=== PATIENT | female | born 1975 | race Caucasian/White ===

== ENCOUNTER 2018-07-04 23:25 | Emergency (ER) | payer SELFPAY ==
[~2018-07-04] VITALS: Ht 154.9 cm; Wt 59.0 kg
[2018-07-04 23:41] VITALS: BP_SYST 146
--- NOTE | 2018-07-04 23:44 | NUR ---
Patient to ER bed 05 to gown for evaluation. Side rails up. Report given to YU Lowry
[2018-07-04] MEDS ORDERED: NACL 0.9% 1,000 ML IV ONE (23:49)
--- NOTE | 2018-07-04 23:50 | NUR ---
Patient came in for nausea, vomitting, and diarrhea. Patient has 10/10 epigastric pain. Patient said that she took Duolax which she explains why she has diarrhea. Patient said she had a csection in 2006. History of of Lupus. No other complaints/injuries noted. Will cont. to monitor.
[2018-07-05] MEDS ORDERED: KETOROLAC TROMETHAMINE 30 MG VIAL IVP ONE
[2018-07-05] MEDS ORDERED: ONDANSETRON HCL 4 MG/2 ML VIAL IVP ONE
--- NOTE | 2018-07-05 00:05 | NUR ---
# 20 gauge angiocath placed to RAC. Use of asceptic technique. Opsite placed over site. Blood return noted. Blood for lab drawn from site. Flushed with 10 cc of normal saline. No evidence of infiltration noted. Patient tolerated well.
--- NOTE | 2018-07-05 00:28 | NUR ---
Patient started on fluids, Toradol IVP, and zofran IVP. Patient tolerated well. Will cont. to monitor.
[2018-07-05 00:37] LABS: CALCIUM 9.8 mg/dL (8.4-11.0); CREATININE 0.92 mg/dL (0.55-1.30); POTASSIUM 3.3 mmol/L (3.5-5.1)
[2018-07-05 00:40] LABS: ALBUMIN 4.5 g/dL (3.4-4.8); TOTAL BILIRUBIN 0.3 mg/dL (0.0-1.0)
--- NOTE | 2018-07-05 00:40 | NUR ---
ER Dr. Zavala at bedside examining patient.
[2018-07-05 00:49] LABS: BASOPHILS % (AUTO) 0.3 % (0.0-2.0); EOSINOPHILS % (AUTO) 0.5 % (0.0-4.0); HEMATOCRIT 45.3 % (36-48); HEMOGLOBIN 14.9 g/dL (12.0-16.0); LYMPHOCYTES # (AUTO) 1.4 K/uL (1.0-5.5); LYMPHOCYTES % (AUTO) 18.6 % (20.5-51.5); MEAN CORPUSCULAR HEMOGLOBIN 30 pg (27-31); MEAN CORPUSCULAR HGB CONC 33 % (32-36); MEAN CORPUSCULAR VOLUME 91 fL (79.0-98.0); MONOCYTES # (AUTO) 0.4 K/uL (0.0-1.0); NEUTROPHILS # (AUTO) 5.5 K/uL (1.8-7.7); NEUTROPHILS % (AUTO) 74.6 % (40.0-70.0); PLATELET COUNT (AUTO) 203 K/uL (130-430); RED BLOOD CELL COUNT(AUTO) 4.97 MIL/uL (4.2-6.2); RED CELL DISTRIBUTION WIDTH 12.8 % (9.0-15.0); WHITE BLOOD COUNT (AUTO) 7.3 K/uL (4.8-10.8)
--- NOTE | 2018-07-05 00:50 | NUR ---
Note undone in EDM - 07/05/18 at 0107 by [email or web address] # 20 gauge angiocath placed to RAC. Use of asceptic technique. Opsite placed over site. Blood return noted. Blood for lab drawn from site. Flushed with 10 cc of normal saline. No evidence of infiltration noted. Patient tolerated well.
[2018-07-05 01:03] LABS: BILIRUBIN,URINE NEGATIVE (NEGATIVE); BLOOD, URINE NEGATIVE (NEGATIVE); CLARITY/URINE CLEAR (CLEAR); COLOR,URINE YELLOW (YELLOW); GLUCOSE,URINE NEGATIVE (NEGATIVE); KETONES,URINE NEGATIVE (NEGATIVE); LEUKOCYTE ESTERASE ,URINE NEGATIVE (NEGATIVE); NITRITE, URINE NEGATIVE (NEGATIVE); PROTEIN URINE NEGATIVE (NEGATIVE); UROBILINOGEN,URINE 0.2 (0.2-1.0)
--- NOTE | 2018-07-05 01:05 | NUR ---
Patient is going to ultrasound via wheelchair. Tolerating well.
[2018-07-05 02:12] VITALS: BP_SYST 146
--- NOTE | 2018-07-05 02:12 | NUR ---
Patient given written and verbal discharge instructions and verbalizes understanding. ER MD Dr. Painter discussed with patient the results and treatment provided. Patient in stable condition. ID arm band removed. IV catheter removed intact and dressing applied, no active bleeding. Rx of Fosters and zofran given. Patient educated on pain management and to follow up with PMD within 2-3 days. Pain Scale 0/10. Opportunity for questions provided and answered. Medication side effect fact sheet provided.
== END 2018-07-05 02:12 | disposition home or self-care (01) ==
LOC: SED 23:25
DX: K80.70 Calculus of gallbladder and bile duct without cholecystitis without obstruction (principal); R03.0 Elevated blood-pressure reading, without diagnosis of hypertension
CPT/HCPCS: 36415; 76700; 80053; 81003; 83690; 85025; 96361; 96374; 96375; 99285; J1885; J2405; J7030

== ENCOUNTER 2022-08-04 02:07 | Emergency (ER) | payer OTHER ==
[~2022-08-04] VITALS: Ht 154.9 cm; Wt 56.2 kg
[2022-08-04 02:10] VITALS: BP_SYST 149
[2022-08-04] MEDS ORDERED: NACL 0.9% 1,000 ML IV ONE (02:30)
[2022-08-04] MEDS ORDERED: MORPHINE 4 MG INJ. 4 MG/ML VIAL IVP ONE (02:30)
[2022-08-04] MEDS ORDERED: ONDANSETRON HCL 4 MG/2 ML VIAL IVP ONE ×2 (02:30→02:45)
[2022-08-04 02:34] LABS: BILIRUBIN,URINE NEGATIVE (NEGATIVE); BLOOD, URINE NEGATIVE (NEGATIVE); CLARITY/URINE CLEAR (CLEAR); COLOR,URINE YELLOW (YELLOW); GLUCOSE,URINE NEGATIVE (NEGATIVE); KETONES,URINE NEGATIVE (NEGATIVE); LEUKOCYTE ESTERASE ,URINE TRACE (NEGATIVE); NITRITE, URINE NEGATIVE (NEGATIVE); PH,URINE 7.5 (5.0-8.0); PROTEIN URINE NEGATIVE (NEGATIVE); UROBILINOGEN,URINE 0.2 (0.2-1.0)
[2022-08-04] MEDS ORDERED: MORPHINE 4 MG INJ. 4 MG/ML VIAL IM ONE ×2 (02:45)
[2022-08-04 02:47] LABS: BASOPHILS # (AUTO) 0.1 K/uL (0.0-0.2); BASOPHILS % (AUTO) 1.2 % (0.0-2.0); EOSINOPHILS % (AUTO) 0.5 % (0.0-4.0); HEMATOCRIT 41.3 % (36-48); HEMOGLOBIN 14.1 g/dL (12.0-16.0); LYMPHOCYTES # (AUTO) 1.1 K/uL (1.0-5.5); LYMPHOCYTES % (AUTO) 14.9 % (20.5-51.5); MEAN CORPUSCULAR HEMOGLOBIN 29 pg (27-31); MEAN CORPUSCULAR HGB CONC 34 % (32-36); MEAN CORPUSCULAR VOLUME 85 fL (79.0-98.0); MONOCYTES # (AUTO) 0.6 K/uL (0.0-1.0); MONOCYTES % (AUTO) 8.6 % (1.7-9.3); NEUTROPHILS # (AUTO) 5.4 K/uL (1.8-7.7); NEUTROPHILS % (AUTO) 74.8 % (40.0-70.0); PLATELET COUNT (AUTO) 181 K/uL (130-430); RED BLOOD CELL COUNT(AUTO) 4.84 MIL/uL (4.2-6.2); RED CELL DISTRIBUTION WIDTH 13.3 % (9.0-15.0); WHITE BLOOD COUNT (AUTO) 7.2 K/uL (4.8-10.8)
[2022-08-04 03:09] LABS: CALCIUM 9.5 mg/dL (8.4-11.0); CREATININE 0.75 mg/dL (0.55-1.30)
[2022-08-04] MEDS ORDERED: FAMO40TA7 PO (04:19)
[2022-08-04 04:37] VITALS: BP_SYST 149
[2022-08-05] MEDS ORDERED: PARO-63 PO (06:01)
[2022-08-05] MEDS ORDERED: PARO12.520 PO (16:38)
== END 2022-08-04 04:27 | disposition home or self-care (01) ==
LOC: SED 02:07
DX: K80.80 Other cholelithiasis without obstruction (principal); R10.13 Epigastric pain; R11.0 Nausea; Z79.899 Other long term (current) drug therapy
CPT/HCPCS: 99284; 76700; 80053; 83690; 85025; 36415; 96372; 81003; J2270; Q9967